=== PATIENT | female | born 1995 | race Caucasian/White ===

== ENCOUNTER 2017-03-08 04:42 | Emergency (ER) | payer BC ==
--- NOTE | 2017-03-08 04:50 | EDPHY ---
H & P HPI/ROS: HPI CHIEF COMPLAINT: Chest pain HISTORY OF PRESENT ILLNESS: Patient is a 21-year-old female, she is otherwise healthy without any significant medical history she presents emergency room with chest discomfort. Patient reports to me that she has a pain in the center of her chest that is worse with expiration. Denies pain when she breathes in. She does state it is rather sharp when she breathes out. Additionally she states this started around 8:30 p.m. last night. It has been constant throughout the night. She also tells me that she has some pain in her left arm. She did report nausea early but no vomiting. She has not had a fever. No recent illness. Denies history of DVT or PE. Denies shortness of breath. Current pain level 6/ 10 center of her chest. Additionally when you press in the center of her chest causes her discomfort. She has not been coughing recently. Past Medical History: Denies medical history Past Surgical History: Denies surgical history Social History: Denies drugs alcohol tobacco. [employer] student. Family History: Noncontributory ROS REVIEW OF SYSTEMS: A comprehensive 10 point review of systems is otherwise negative aside from elements mentioned in the history of present illness. Exam Constitutional appears well nontoxic triage nursing summary reviewed, vital signs reviewed, awake/alert. Tachycardic at triage Eyes normal conjunctivae and sclera, EOMI, PERRLA. HENT normal inspection, atraumatic, moist mucus membranes, no epistaxis, neck supple/ no meningismus, no raccoon eyes. Respiratory clear to auscultation bilaterally, normal breath sounds, no respiratory distress, no wheezing. Cardiovascular tachycardic chest wall tender palpation over the center of her chest, regular rhythm, no murmur, no edema, distal pulses normal. Gastrointestinal soft, non-tender, no rebound, no guarding, normal bowel sounds, no distension, no pulsatile mass. Genitourinary no CVA tenderness. Musculoskeletal no midline vertebral tenderness, full range of motion, no calf swelling, no tenderness of extremities, no meningismus, good pulses, neurovascularly intact. Skin pink, warm, & dry, no rash, skin atraumatic. Neurologic awake, alert and oriented x 3, AAOx3, moves all 4 extremities equally, motor intact, sensory intact, CN II-XII intact, normal cerebellar, normal vision, normal speech. Psychiatric normal mood/affect. Heme/Lymph/Immune no lymphadenopathy. Differential diagnosis includes but is not limited to: ACS, atypical chest pain , pneumothorax, pneumonia, pulmonary embolism, aortic dissection, congestive heart failure, tumor, musculoskeletal pain, esophageal pain, GERD, peptic ulcer disease, pancreatitis Medical Decision Making: Plan for this patient full quality assurance monitor body IV establishment, give GI cocktail to see if this improves her chest discomfort, chest x-ray two view to rule out pneumothorax, EKG, check D-dimer. Re-evaluate. Re-evaluation: ED x-ray chest two view negative for acute cardiopulmonary disease. Specifically I do not appreciate pneumothorax. EKG interpretation by me on record in [facility] system. Impression time of EKG 4:56 a.m., sinus rhythm rate of 88. No acute ischemic change. No signs of cardiac arrhythmia. 0641: I did re-evaluate her the GI cocktail did not help her discomfort. I have now ordered her Toradol IV 15 mg. Will see if this improves her discomfort. She does complain of pleuritic pain when she breathes out. I do not appreciate anything significant on her chest x-ray. 0742: I did re-evaluate her at this time. She is feeling 100% better after IV Toradol 15 mg. She tells me she has no further pain in her chest. Additionally this may be musculoskeletal chest wall pain given she had pain with palpitations additionally she had pain with expiration and no real inspiratory sharp pain. The pain is now gone after IV Toradol. Most likely she has a component of pleurisy as well. Her blood work has been reviewed she has a negative troponin D-dimer is negative. I do not feel that she needs CT angiogram of her chest given that she is doing much better with IV Toradol and her D-dimer is negative. She was tachycardic upon arrival however this has resolved with IV fluids. She does feel comfortable going home. I do recommend that she takes Tylenol Motrin for the next few days as this will help with musculoskeletal chest wall pain and pleurisy. Additionally she understands return emergency room she develops worsening symptoms questions or concerns. This includes worsening chest pain, shortness of breath, fever, vomiting. Source: Patient Constitutional: Initial Vital Signs Temperature (C) 36.9 C 03/08/17 05:03 Heart Rate 122 H 03/08/17 05:03 Respiratory Rate 16 03/08/17 05:03 Blood Pressure 155/117 H 03/08/17 05:03 O2 Sat (%) 96 03/08/17 05:03 O2 Delivery Mode Room Air Allergies/Adverse Reactions: No Known Allergies Allergy (Unverified 03/08/17 05:04) Home Medications: Medication Instructions Recorded NK [No Known Home Meds] 03/08/17 Medical Decision Making - Data Points Laboratory Results: Laboratory Results 03/08/17 05:43 03/08/17 05:43 03/08/17 03/08/17 03/08/17 05:43 05:43 05:43 WBC RBC Hgb Hct MCV MCH MCHC RDW Plt Count MPV Neut % (Auto) Lymph % (Auto) [place] % (Auto) Eos % (Auto) Baso % (Auto) Nucleat RBC Rel Count Absolute Neuts (auto) Absolute Lymphs (auto) Absolute Monos (auto) Absolute Eos (auto) Absolute Basos (auto) Absolute Nucleated RBC Immature Gran % Immature Gran # PT 13.3 SEC SEC (12.0-15.0) INR 0.99 (0.83-1.16) APTT 27.5 SEC SEC (23.0-38.0) D-Dimer < 0.27 ug/mLFEU ug/mLFEU (0.00-0.50) Sodium 146 mEq/L H mEq/L (135-145) Potassium 4.4 mEq/L mEq/L (3.5-5.2) Chloride 107 mEq/L mEq/L (97-110) Carbon Dioxide 19 mEq/l L mEq/l (22-31) Anion Gap 20 mEq/L H mEq/L (8-16) BUN 12 mg/dL mg/dL (7-23) Creatinine 0.7 mg/dL mg/dL (0.6-1.0) Estimated GFR > 60 Glucose 97 mg/dL mg/dL (70-100) Calcium 9.7 mg/dL mg/dL (8.5-10.4) Magnesium 2.1 mg/dL mg/dL (1.6-2.3) Total Bilirubin 1.3 mg/dL mg/dL (0.1-1.4) Conjugated Bilirubin 0.3 mg/dL mg/dL (0.0-0.5) Unconjugated Bilirubin 1.0 mg/dL mg/dL (0.0-1.1) AST 32 IU/L IU/L (14-46) ALT 30 IU/L IU/L (9-52) Alkaline Phosphatase 71 IU/L IU/L (38-126) Creatine Kinase 100 IU/L IU/L (0-156) CK-MB (CK-2) Fraction 0.34 ng/mL ng/mL (0.00-3.19) Troponin I < 0.012 ng/mL ng/mL (0.000-0.034) NT-Pro-B Natriuret Pep 38 pg/mL pg/mL (0-125) Total Protein 8.1 g/dL g/dL (6.3-8.2) Albumin 4.7 g/dL g/dL (3.5-5.0) Lipase 48 IU/L IU/L (23-300) Beta HCG, Qual NEGATIVE 03/08/17 05:43 WBC 9.14 10^3/uL 10^3/uL (3.80-9.50) RBC 4.94 10^6/uL 10^6/uL (4.18-5.33) Hgb 15.0 g/dL g/dL (12.6-16.3) Hct 43.9 % % (38.0-47.0) MCV 88.9 fL fL (81.5-99.8) MCH 30.4 pg pg (27.9-34.1) MCHC 34.2 g/dL g/dL (32.4-36.7) RDW 12.6 % % (11.5-15.2) Plt Count 204 10^3/uL 10^3/uL (150-400) MPV 9.7 fL fL (8.7-11.7) Neut % (Auto) 76.6 % H % (39.3-74.2) Lymph % (Auto) 15.4 % % (15.0-45.0) [place] % (Auto) 6.3 % % (4.5-13.0) Eos % (Auto) 1.0 % % (0.6-7.6) Baso % (Auto) 0.5 % % (0.3-1.7) Nucleat RBC Rel Count 0.0 % % (0.0-0.2) Absolute Neuts (auto) 6.99 10^3/uL H 10^3/uL (1.70-6.50) Absolute Lymphs (auto) 1.41 10^3/uL 10^3/uL (1.00-3.00) Absolute Monos (auto) 0.58 10^3/uL 10^3/uL (0.30-0.80) Absolute Eos (auto) 0.09 10^3/uL 10^3/uL (0.03-0.40) Absolute Basos (auto) 0.05 10^3/uL 10^3/uL (0.02-0.10) Absolute Nucleated RBC 0.00 10^3/uL 10^3/uL (0-0.01) Immature Gran % 0.2 % % (0.0-1.1) Immature Gran # 0.02 10^3/uL 10^3/uL (0.00-0.10) PT INR APTT D-Dimer Sodium Potassium Chloride Carbon Dioxide Anion Gap BUN Creatinine Estimated GFR Glucose Calcium Magnesium Total Bilirubin Conjugated Bilirubin Unconjugated Bilirubin AST ALT Alkaline Phosphatase Creatine Kinase CK-MB (CK-2) Fraction Troponin I NT-Pro-B Natriuret Pep Total Protein Albumin Lipase Beta HCG, Qual Medications Given: Discontinued Medications Sodium Chloride (Ns) 1,000 mls @ 0 mls/hr IV EDNOW ONE; Wide Open PRN Reason: Protocol Stop: 03/08/17 04:56 Last Admin: 03/08/17 05:42 Dose: 1,000 mls Ketorolac Tromethamine (Toradol) 15 mg IVP EDNOW ONE Stop: 03/08/17 06:42 Last Admin: 03/08/17 06:44 Dose: 15 mg Departure - Departure Disposition: Home, Routine, Self-Care Clinical Impression: Chest wall pain, Pleurisy Condition: Good Instructions: Pleurisy (ED), Chest Wall Pain (ED) Additional Instructions: 1. Return emergency room if you have worsening symptoms includes worsening pain in her chest, shortness of breath, fever, vomiting 2. Alternate Tylenol Motrin every 4-6 hours for fever, pain control. Referrals: NONE *PRIMARY CARE P,. [Primary Care Provider] - As per Instructions
[2017-03-08] MEDS ORDERED: NS 1,000 ML IV ONE (04:55)
--- NOTE | 2017-03-08 04:58 | CPEKG ---
Heart Rate: 88 RR Interval: 682 P-R Interval: 192 QRSD Interval: 84 QT Interval: 344 QTC Interval: 417 P Blessing: -12 QRS Blessing: 76 T Wave Blessing: 54 EKG Severity - NORMAL ECG - EKG Impression: SINUS RHYTHM Electronically Signed By: Syed Adams 08-Mar-2017 07:56:38
[2017-03-08 05:53] LABS: PLATELET COUNT 204 10^3/uL (150-400)
[2017-03-08 06:01] LABS: INR 0.99 (0.83-1.16); PROTIME(PATIENT) 13.3 SEC (12.0-15.0)
[2017-03-08 06:14] LABS: CREATINE KINASE 100 IU/L (0-156)
[2017-03-08] MEDS ORDERED: KETOROLAC 15 MG/1 ML SDV IVP ONE (06:41)
[2017-03-08 06:47] VITALS: RESP 16
[2017-03-08] MEDS ORDERED: IOPAMIDOL (ISOVUE 370) 100 ML BTL IV ONE (06:50)
[2017-03-08 07:56] VITALS: BP 120/78; PULSE 80; TEMP 98.6; O2SAT 94
== END 2017-03-08 07:56 | disposition home or self-care (01) ==
DX: R09.1 Pleurisy (principal); E86.9 Volume depletion, unspecified
CPT/HCPCS: 96374; J1885; Q9967